=== PATIENT | female | born 2000 | race Hispanic/Latino ===

== ENCOUNTER 2021-11-15 17:40 | Emergency (ER) | payer OTHER, SELFPAY ==
[2021-11-15 17:52] VITALS: BP 105/53; PULSE 74; RESP 16; TEMP 37.4; O2SAT 100
--- NOTE | 2021-11-15 18:11 | ED.EAR ---
HPI - Ear Problem General Chief complaint: Ear Stated complaint: Ear Pain Time Seen by Provider: 11/15/21 18:11 Source: patient Mode of arrival: ambulatory Limitations: no limitations History of Present Illness HPI Narrative: 20 yo F presents with c/o R ear pain for several days. Also reports having allergy issues. Taking zyrtec daily and was recently given singulair and flonase by her PCP. Had infection to R ear 3 or 4 wks ago. Took amoxicillin. All systems reviewed and negative except as noted above. Related Data Home Medications Medication Instructions Recorded Confirmed cetirizine 10 mg tablet (Zyrtec) 10 mg PO DAILY 11/15/21 11/15/21 escitalopram oxalate 20 mg tablet 1 tablet PO DAILY 11/15/21 11/15/21 fluticasone propionate 50 ea intranasal 11/15/21 mcg/actuation nasal spray,suspension levothyroxine 25 mcg tablet 1 tablet PO DAILY 11/15/21 11/15/21 montelukast 10 mg tablet 1 tablet PO DAILY 11/15/21 11/15/21 Allergies Allergy/AdvReac Type Severity Reaction Status Date / Time No Known Allergies Allergy Verified 11/15/21 17:47 Review of Systems Review of Systems: CONSTITUTIONAL: Denies fever, chills, or sweats. EYES: Denies visual changes, redness, or discharge. ENT: Reports rhinorrhea, congestion, right ear pain. Denies sore throat. CARDIOVASCULAR: Denies chest pain, palpitations, or edema. RESPIRATORY: Denies cough or dyspnea. GASTROINTESTINAL: Denies abdominal pain, nausea, vomiting, or diarrhea. GENITOURINARY: Denies dysuria or hematuria. SKIN: Denies rash or itching. MUSCULOSKELETAL: Denies back pain, joint pain, or myalgia. NEUROLOGIC: Denies headache, numbness, or weakness. PSYCHIATRIC: Denies anxiety or depression. All other systems reviewed are negative, except as documented in HPI. [facility]LY [facility] Past Medical History Medical History (Updated 11/15/21 @ 18:16 by Jinny Sage NP) Gallstones Histiocytosis Surgical History Surgical History (Updated 04/09/19 @ 23:31 by Eugenie Rodriguez) History of surgery of head right Family History Family History Other Diabetes mellitus Family history of blood dyscrasia Family history of coronary artery disease Family history of malignant neoplasm of breast Family history of malignant neoplasm of stomach Hypertension Social History Social History Smoking status: Never smoker Alcohol intake: never Gender identity (if verbalized by the patient): Female Comments At time of signature, agree with nursing past medical, surgical, social and family history. There is no relevant family history pertinent to the presenting complaint. Exam Narrative: GENERAL: This is a well-nourished, well-developed patient, in no apparent distress. HEAD: normocephalic, atraumatic. EYES: PERRL. Sclera clear/white. Vision is grossly intact. EARS: External ears normal, auditory canals clear and without drainage, fluid to R TM with mild erythema. L TM normal. NOSE: External nose normal with clear nasal drainage. No erythema or swelling to nares. THROAT: Mucous membranes moist, posterior pharynx clear. NECK: Neck supple, non-tender without lymphadenopathy, masses or thyromegaly. CARDIOVASCULAR: Regular rate and rhythm without murmurs, gallops, or rubs. RESPIRATORY: Clear to auscultation. Breath sounds equal bilaterally. No wheezes, rales, or rhonchi. SKIN: warm, Dry, intact with no suspicious lesions or rash, good texture and turgor. NEURO: awake, alert, and oriented to person, place and time. There were no obvious focal neurologic abnormalities. EXTREMITIES: No joint tenderness, effusion, or edema noted. Course Course Level of Care: Express Care Visit Vital Signs Vital signs: Vital Signs Temperature 37.4 C 11/15/21 17:52 Pulse Rate 74 11/15/21 17:52 Respiratory Rate 16 11/15/21 17:52 Blood Pressure 105/53 L 11/15/21 17:52 Pulse Ox
== END 2021-11-15 18:20 | disposition home or self-care (01) ==
PROVIDERS: Emergency Provider Nurse Practitioner Family; PCP Registered Nurse
DX: H65.04 Acute serous otitis media, recurrent, right ear (principal); D76.3 Other histiocytosis syndromes
CPT/HCPCS: 99213; G0463

== ENCOUNTER 2024-02-04 08:07 | Emergency (ER) | payer OTHER, SELFPAY ==
--- NOTE | ~2024-02-04 | XR_ITS ---
EXAMINATION: XR chest 2V DATE: 02/04/2024 08:59 INDICATION: Syncope and dizziness TECHNIQUE: PA and lateral views of the chest were obtained. COMPARISON: Chest radiograph dated 12/21/2018 FINDINGS: The lungs remain clear with no focal airspace opacities, pulmonary edema, pleural effusion or pneumot horax. The cardiomediastinal silhouette is normal. Mild thoracic dextroscoliosis with mild spondylosi s. IMPRESSION: 1. No acute cardiopulmonary disease. Reviewed, dictated and finalized at location [facility].
[2024-02-04 08:17] VITALS: BP 123/66; PULSE 60; RESP 20; TEMP 36.7; O2SAT 100
--- NOTE | 2024-02-04 08:22 | ECG_ITS ---
Test Date: 2024-02-04 08:36:12 Measurements Intervals [place] Rate: 63 P: 14 VA: 181 QRS: 45 QRSD: 104 T: 27 QT: 399 QTc: 410 Interpretive Statements SINUS RHYTHM MINIMAL Q WAVES- INFERIOR LEADS BASELINE ARTIFACT- I, II, III, AVR, AVL, AVF BORDERLINE ECG No previous ECG available for comparison Electronically Signed On 02-04-2024 08:44:26 CDT by Jony Alfaro D.O.
[2024-02-04 08:40] LABS: BEDSIDEPREGUCG Negative (Negative)
[2024-02-04] MEDS: SODIUM CHLORIDE 0.9% IV 1,000 ML 999 ML IV CONT (09:01)
[2024-02-04] MEDS: MECLIZINE HCL 25 MG TABLET PO (09:01)
[2024-02-04 09:03] LABS: Alanine Aminotransferase 15 U/L (6-35); Albumin Level 4.4 g/dL (3.5-5.1); Alkaline Phosphatase 50 U/L (38-126); Anion Gap 10 mmol/L (4-12); Aspartate Amino Transferase 19 U/L (14-36); Bilirubin,Total 0.4 mg/dL (0.2-1.3); Blood Urea Nitrogen 16 mg/dL (7-17); Calcium 8.8 mg/dL (8.4-10.2); Carbon Dioxide 25 mmol/L (22-30); Chloride 102 mmol/L (98-107); Estimated CRCL calculation 124 ml/min; Estimated Glomerular Filt Rate > 60; Glucose 87 mg/dL (65-110); Potassium 4.3 mmol/L (3.4-5.0); Sodium 137 mmol/L (137-145)
[2024-02-04 09:10] LABS: Basophils Percent Auto 0.4 % (0.2-1.2); Eosinophils Absolute Auto 0.1 K/mm3 (0-0.3); Eosinophils Percent Auto 2.7 % (0-4.4); Hematocrit 36.5 % (37.0-47.0); Hemoglobin 12.3 g/dL (12.0-15.0); Lymphocytes Absolute Auto 1.64 K/mm3 (0.9-3.2); Lymphocytes Percent Auto 31.7 % (18.3-44.2); Mean Corpuscular HGB Conc 33.7 g/dl (32-36); Mean Corpuscular Hemoglobin 30.1 pg (26-34); Mean Corpuscular Volume 89.5 fl (80-100); Mean Platelet Volume 9.3 fl (7.4-10.4); Monocytes Absolute Auto 0.4 K/mm3 (0.1-0.6); Monocytes Percent Auto 7.7 % (2.6-8.5); Neutrophils Percent Auto 57.5 % (45.5-73.1); Platelet Count Result 265 k/mm3 (150-375); Red Blood Count 4.08 M/mm3 (4.2-5.4); Red Cell Distribution Width 13.3 % (11.5-14.5); White Blood Count 5.2 K/mm3 (4.5-10.0)
[2024-02-04 10:01] VITALS: BP 105/61; PULSE 65
[2024-02-04 10:02] VITALS: BP 116/77; PULSE 64
[2024-02-04 10:03] VITALS: BP 120/69; PULSE 73
--- NOTE | 2024-02-04 11:00 | ED.GENADULT ---
HPI - General Adult General Chief complaint: Syncope Stated complaint: I felt like I was going to faint this morning Time Seen by Provider: 02/04/24 08:23 History of Present Illness HPI narrative: Patient is a 23-year-old female who presents ER with near syncope. Reports she was in her kitchen slicing some fruit when she experienced spinning dizziness. Ongoing for 15 minutes. Associated with nausea but no vomiting. Has had episodic dizziness in the past but nothing this prolonged. No weakness or numbness to any arm or leg. No fevers or chills or sweats. Denies headache. Related Data Home Medications Medication Instructions Recorded Confirmed cetirizine 10 mg tablet (Zyrtec) 10 mg PO DAILY 11/15/21 11/15/21 escitalopram oxalate 20 mg tablet 1 tablet PO DAILY 11/15/21 11/15/21 fluticasone propionate 50 ea intranasal 11/15/21 mcg/actuation nasal spray,suspension levothyroxine 25 mcg tablet 1 tablet PO DAILY 11/15/21 11/15/21 montelukast 10 mg tablet 1 tablet PO DAILY 11/15/21 11/15/21 Allergies Allergy/AdvReac Type Severity Reaction Status Date / Time No Known Allergies Allergy Verified 02/04/24 09:13 Review of Systems Review of Systems: All systems reviewed & are unremarkable except as noted in HPI and below Constitutional: Constitutional: Reports no additional constitutional complaints ENT: Reports dizziness, Denies nasal congestion and Denies sore throat Cardiovascular: Cardiovascular: Reports no additional cardiovascular complaints Respiratory: Respiratory: Reports no additional respiratory complaints Gastrointestinal: Gastrointestinal: Reports no additional gastrointestinal complaints [facility] Past Medical History Medical History (Updated 02/04/24 @ 11:01 by Obey Srinivasan MD) Gallstones Histiocytosis Surgical History Surgical History (Updated 04/09/19 @ 23:31 by Eugenie Rodriguez) History of surgery of head right Family History Family History Other Diabetes mellitus Family history of blood dyscrasia Family history of coronary artery disease Family history of malignant neoplasm of breast Family history of malignant neoplasm of stomach Hypertension Social History Social History Smoking status: Never smoker Alcohol intake: never Gender identity (if verbalized by the patient): Female Exam Narrative: GENERAL: Well-appearing, well-nourished, and in no acute distress. HEAD: Normocephalic, atraumatic. EYES: PERRLA and EOMI. ENT: Mucous membranes moist. TMs normal bilaterally. CHEST: Clear to auscultation. No respiratory distress. HEART: Regular rate and rhythm. Normal peripheral pulses. ABDOMEN: Soft, nontender, nondistended. EXTREMITIES: Normal range of motion. No edema. SKIN: Warm, dry, no rash. NEURO: Alert and oriented x3. PSYCH: Normal mood and affect. Course Course Emergency Course: Patient feels improved after IV fluid and meclizine. Patient feels comfortable discharge home. Lab work normal. Patient's test was negative. Normal chest x-ray and EKG. Vital Signs Vital signs: Vital Signs Temperature 98.1 F 02/04/24 08:17 Pulse Rate 60 02/04/24 08:17 Respiratory Rate 20 02/04/24 08:17 Blood Pressure 123/66 02/04/24 08:17 Pulse Oximetry 100 02/04/24 08:17 Oxygen Delivery Room Air 02/04/24 08:17 Temperature 98.1 F 02/04/24 11:21 Pulse Rate 64 02/04/24 11:21 Respiratory Rate 16 02/04/24 11:21 Blood Pressure 111/65 02/04/24 11:21 Pulse Oximetry 100 02/04/24 11:21 Oxygen Delivery Room Air 02/04/24 08:17 Medical Decision Making Vital Signs Vital Signs: Vital Signs Temperature 98.1 F 02/04/24 08:17 Pulse Rate 60 02/04/24 08:17 Respiratory Rate 20 02/04/24 08:17 Blood Pressure 123/66 02/04/24 08:17 Pulse Oximetry 100 02/04/24 08:17 Oxygen Delivery Room Air 02/03
[2024-02-04 11:21] VITALS: BP 111/65; PULSE 64; RESP 16; TEMP 36.7; O2SAT 100
== END 2024-02-04 11:22 | disposition home or self-care (01) ==
PROVIDERS: Emergency Provider Emergency Medicine; PCP Registered Nurse
DX: R55 Syncope and collapse (principal); R94.31 Abnormal electrocardiogram [ECG] [EKG]
CPT/HCPCS: 36415; 71046; 80053; 81025; 85025; 93005; 96360; 99284; A9270; J7030

== ENCOUNTER 2024-03-10 07:46 | Outpatient (CLI) | payer OTHER, SELFPAY ==
--- NOTE | ~2024-03-10 | CT_ITS ---
Pre and postcontrast Head CT History: Dizziness Technique: Axial imaging of the brain was performed prior to and following intravenous administratio n of 100 cc of Omnipaque 350 contrast material. Dose reduction technique was used on this scan by kacy middletoning automated exposure control and iterative reconstruction technique. The dose-length product (DL P) was 1286.33 mGy-cm. Findings: There is no evidence of intracranial hemorrhage, mass lesion, or acute infarct. Brain par enchyma appears normal. The ventricles and subarachnoid spaces are normal in size. The calvarium ap pears normal. The visualized paranasal sinuses and mastoid air cells are clear. No abnormal postcontrast enhancement identified. Impression: No significant abnormality seen. Reviewed, dictated and finalized at [facility]. Impression: No significant abnormality seen.
== END 2024-03-10 07:47 | disposition home or self-care (01) ==
PROVIDERS: PCP Registered Nurse; Visit Provider Registered Nurse
DX: R42 Dizziness and giddiness (principal); R11.2 Nausea with vomiting, unspecified; R55 Syncope and collapse
CPT/HCPCS: 70470; Q9967